=== PATIENT | female | born 1965 | race Caucasian/White ===

== ENCOUNTER 2016-08-16 17:11 | Emergency (ER) | payer OTHER ==
[~2016-08-16] VITALS: Ht 157.5 cm; Wt 68.0 kg
[~2016-08-16 17:11] MED LIST: ASPI81 PO; ATOR40TA49 PO; CLOP75 PO; GLUCTAB PO
[2016-08-16 17:22] VITALS: BP 145/91; PULSE 96; RESP 18; TEMP 99; O2SAT 98
[2016-08-16] MEDS ORDERED: METF500T PO (18:03)
[2016-08-16 18:16] LABS: BLOOD, URINE SMALL (NEG); GLUCOSE,URINE NEG (NEG); KETONE, URINE NEG (NEG); NITRITE,URINE NEG (NEG); PH, URINE 6.5 (5.0-8.5)
[2016-08-16 18:26] LABS: BACTERIA, URINE MANY /hpf; COMMENT (UR) CULTURE INDICATED; CULTURE IF INDICATED CULTURE INDICATED; RBC, URINE 0-3 /hpf (0-3); SQUAMOUS EPITHELIAL CELL URINE 0-5 /hpf (0-5); URINE COLOR YELLOW (YELLW/STRAW)
[2016-08-16] MEDS ORDERED: CEPH-460 PO (18:44)
--- NOTE | 2016-08-16 18:44 | PD ---
HPI Chief Complaint: Complaint Time Seen by Provider: 18:07 Travel History International Travel<30 days: No Contact w/Intl Traveler<30days: No Traveled to known affect area: No History of Present Illness HPI So 51 year-old woman who presents to the emergency department complaining of ongoing UTI symptoms. She did intermittent frequent UTIs for the past for 5 months. She has diabetes treated with metformin states her blood sugars run around 120s to 140s. She's had recurrent UTIs over past several months but doesn't really know why. She's been referred for an ultrasound and a week or so for further evaluation. She completed a course of Macrobid isn't feeling any better for UTI symptoms started about a week or so ago. She has ongoing dysuria, lower abdominal pain, intermittent fevers chills, intermittent nausea. History Past Medical History Narrative Medical Diabetes Tetanus Vaccination: > 5 Years Influenza Vaccination: Yes Menopausal: Yes Past Surgical History Surgical History: No Previous Surgery Social History Alcohol Use: No Tobacco Use: No Allergies-Medications (Allergen,Severity, Reaction): Coded Allergies: No Known Allergies (Unverified , 08/16/16) Reported Meds & Prescriptions Reported Meds & Active Scripts Active Lipitor 40 Mg Tab (Atorvastatin Calcium) 40 Mg Tab 40 Mg PO DAILY 30 Days Plavix (Clopidogrel Bisulfate) 75 Mg Tab 75 Mg PO DAILY 30 Days Aspirin Low Strength (Aspirin) 81 Mg Chw 81 Mg PO DAILY 30 Days Glucophage XR 24 HR (Metformin HCl) 500 Mg Tab 500 Mg PO BID 30 Days Reported Metformin (Metformin HCl) 500 Mg Tab 500 Mg PO BIDPC With meals Review of Systems Except as stated in HPI: all other systems reviewed are Neg Physical Exam Narrative GENERAL: Well-appearing 51 year-old woman, no acute distress. SKIN: Warm and dry. CARDIOVASCULAR: Regular rate and rhythm. No murmur appreciated. RESPIRATORY: No accessory muscle use. Clear to auscultation. Breath sounds equal bilaterally. GASTROINTESTINAL: Abdomen soft, non-tender, nondistended. Hepatic and splenic margins not palpable. MUSCULOSKELETAL: No obvious deformities. Data Data Last Documented VS Vital Signs Date Time Temp Pulse Resp B/P Pulse Ox O2 Delivery O2 Flow Rate FiO2 08/16/16 17:22 99.0 96 18 145/91 98 Orders Urinalysis - C+S If Indicated (08/16/16 17:27) Urine Culture (08/16/16 17:55) Ceftriaxone Inj (Rocephin Inj) (08/16/16 18:45) Labs Laboratory Tests Test 08/16/16 17:55 Urine Color YELLOW Urine Turbidity CLEAR Urine pH 6.5 Urine Specific [place] 1.015 Urine Protein NEG mg/dL Urine Glucose (UA) NEG mg/dL Urine Ketones NEG mg/dL Urine Occult Blood SMALL Urine Nitrite NEG Urine Bilirubin NEG Urine Leukocyte Esterase MOD Urine RBC 0-3 /hpf Urine WBC 9-14 /hpf Urine Squamous Epithelial 0-5 /hpf Cells Urine Bacteria MANY /hpf Microscopic Urinalysis Comment CULTURE INDICATED MDM Medical Decision Making Medical Screen Exam Complete: Yes Emergency Medical Condition: Yes Interpretation(s) UA with pyuria Differential Diagnosis UTI, pyelonephritis, cervicitis, infection, malignancy, other Narrative Course Medical decision-making new para 51 year-old woman with recurrent UTI symptoms, feeling of failed treatment. Some back pain and chills acute suggest pyelonephritis. We'll give a single dose of IV ceftriaxone. Urine culture pending. Outpatient follow-up. Diagnosis Primary Impression: UTI (urinary tract infection) Qualified Code: N10 - Acute pyelonephritis Additional Instructions: Take antibiotics as prescribed. Follow-up for your ultrasound as scheduled. Return to the emergency department for any new or worsening symptoms. Med/Other Pt SpecificInfo: Prescription(s) given Scripts Cephalexin (Keflex)500 Mg [id number] Mg PO Q8H #30 CAP Ref 0 Prov:Magan Lugo MD 08/16/16 Disposition: 01 DISCHARGE HOME Condition: Stable Magan Lugo MD Aug 16, 2016 18:44
[2016-08-16] MEDS ORDERED: cefTRIAXone INJ 1,000 MG in SODIUM CHLORIDE 0.9% INJ 100 ML IV ONE (18:45)
[2016-08-16 19:50] VITALS: BP 124/80; PULSE 93; RESP 18; O2SAT 97
== END 2016-08-16 19:52 | disposition home or self-care (01) ==
LOC: PHED 17:11
DX: N39.0 Urinary tract infection, site not specified (principal); B96.29 Other Escherichia coli [E. coli] as the cause of diseases classified elsewhere
CPT/HCPCS: 81001; 87077; 87086; 87186; 99283; J0696